=== PATIENT | female | born 1980 | race American Indian/Alaskan Native ===

== ENCOUNTER 2025-06-19 07:46 | Emergency (ER) | payer SELFPAY ==
[2025-06-19] VITALS (11 sets, daily range): BP systolic 110–138; BP diastolic 58–95; PULSE 94–118; RESP 19–25; TEMP 37–37.3; O2SAT 80–96; BMI 34.7
--- NOTE | 2025-06-19 07:54 | PD.EDSOB ---
ED SOB =RME/HPI General Chief Complaint: Shortness of Breath/Dyspnea Stated Complaint: WANTS BREATHING TREATMENT Time Seen by Provider: 06/19/25 07:54 Arrival date/time: 06/19/25 07:46 RME / HPI RME / HPI Narrative: 45 yo female patient with a h/o asthma c/o SOB x 1 day. Patient states she is visiting from [place] and does not have her nebulizer machine here. Denies fever. Denies cough. Related Data Previous Rx's ?Medication ?Instructions ?Recorded doxycycline hyclate 100 mg capsule 100 mg PO BID #20 caps 09/12/22 hydrocodone 5 mg-acetaminophen 325 1 tab PO Q6H PRN pain #15 tabs 09/12/22 mg tablet metronidazole 500 mg tablet 500 mg PO TID #30 tabs 09/12/22 labetalol 100 mg tablet 100 mg PO QDAY #14 tabs 08/15/23 levofloxacin 500 mg tablet 500 mg PO Q24H #4 tabs 06/19/25 Allergies Allergy/AdvReac Type Severity Reaction Status Date / Time honey Allergy Severe Swelling Verified 06/19/25 07:49 of Lip/Tongue/Throat tomato Allergy Severe SWELLING/ Verified 06/19/25 07:49 ITCHING dexamethasone Allergy Intermediate Itching Verified 06/19/25 07:49 Review of Systems Review of Systems Systems Reviewed: All systems reviewed, normal except as documented Past Medical History Past Medical History CARDIAC: Positive Cardiac Disorders and Hypertension RESPIRATORY: Positive Asthma and Pneumonia GASTROINTESTINAL: Positive Obesity REPRODUCTIVE: Positive Pelvic Inflammatory Disease Family History FAMILY HISTORY: Negative Family Cardiac Disorders Social History SMOKING STATUS: Former smoker SECOND HAND EXPOSURE: Yes SUBSTANCE USE: amphetamines Course Course Course Narrative: 0845 Receiving duoneb. Much improved. Patient has received multiple breathing treatments and saturating low 80s. Plan for admission. I spoke with hospitalist team A for admission. Notified by hospitalist team the patient is refusing admission and is going to sign out AMA. Evidently the patient does not have insurance and does not qualify for home oxygen unless she pays $100/day. Quality Measures none Orders Category Date Time Status Bedside COVID-19 Antigen Test NOW Care 06/19/25 11:31 Completed Room Designer NOW Care 06/19/25 08:30 Completed EKG (ED ONLY) *Do not use* NOW Care 06/19/25 08:30 Completed EKG (ED Only) Stat Exams 06/19/25 08:30 Draft XR chest 1V portable Stat Exams 06/19/25 08:30 Completed B-Type Natriuretic Peptide Stat Lab 06/19/25 08:41 Completed CBC Stat Lab 06/19/25 08:41 Completed Comprehensive Metabolic Panel Stat Lab 06/19/25 08:41 Completed Influenza A & B Rapid Panel Stat Lab 06/19/25 12:22 Completed Magnesium Stat Lab 06/19/25 08:41 Completed Troponin I Stat Lab 06/19/25 08:41 Completed ALBUTEROL RT 0.5ml [Proventil Rt 0.5ml] Med 06/19/25 07:54 Discontinued 10 mg INH X1 ONE Albuterol/Ipratr Rt Diann [Duoneb Rt Diann] Med 06/19/25 13:08 Discontinued 3 ml INH X1 ONE Levofloxacin/D5w 500 mg Ivpb [Levaquin Ivpb] Med 06/19/25 11:31 Discontinued 500 mg in 100 ml IV X1 Magnesium Sulfate 2 GM Ivpb [Magnesium Sulfate Ivpb] Med 06/19/25 17:11 Discontinued 2 gm in 50 ml IV X1 MethylPREDNISolone.* [SoluMEDROL Inj] Med 06/19/25 09:47 Discontinued 125 mg IM X1 ONE Sodium Chloride Rt Diann 0.9% [NS Rt Diann 0.9%] Med 06/19/25 07:54 Discontinued 3 ml INH PRN PRN Vital Signs Vital signs: Vital Signs Temperature 99.1 F 06/19/25 08:02 Pulse Rate 94 06/19/25 08:02 Respiratory Rate 25 H 06/19/25 08:02 Blood Pressure 136/95 H 06/19/25 08:02 Pulse Oximetry (%) 91 L 06/19/25 08:02 Oxygen Delivery Method Nasal Cannula 06/19/25 08:02 Oxygen Flow Rate 6 06/19/25 08:02 Shortness of Breath / Dyspnea MDM Narrative MDM Narrative:: Maranda Dale am scribing for and in the presence of Dr. Patrick. Patient data External records reviewed:: [facility] previous records Clinical information provided by:: patient Social determinants that could affect healthcare access:: none Patient has the following chronic illnesses:: See HPI How is presenting disease/condition affected by chronic disease/condition?: exacerbated by Evaluation data The following diagnostics were reviewed and interpreted by me:: lab results, radiology exam(s) and EKG tracing(s) (EKG @ 08:52 AM. Sinus tachycardia, rate 113, left anterior fascicular block, no STEMI. ) Lab and/or radiology exams considered but not ordered:: None Interpretation Summary: Ordering Physician: America Patrick MD Date of Service: 06/19/25 Procedure(s): XR chest 1V portable Accession Number(s): [id number] cc: Hever Cowan MD; NO PRIMARY/FAMILY,PHYSICIAN; America Patrick MD~ EXAMINATION: AP chest single view TECHNIQUE: Portable upright AP chest single view Date and time: June 19, 2025, 0832 hours INDICATIONS: Difficulty breathing today FINDINGS: Bibasilar pneumonia, significant left base Normal heart size IMPRESSION: Bibasilar pneumonia, significant left base Dictated By: Hever Cowan MD Signed By: <Electronically signed by Hever Cowan MD in OV> 06/19/25 0932 Medications / Prescriptions Medications or Prescriptions considered but not ordered:: None Medication administrations:: Medication Administration History Discontinued Medications Albuterol (Albuterol Rt 2.5 Mg/0.5 Ml Nebu) 10 mg INH X1 ONE Stop: 06/19/25 07:55 Last Admin: 06/19/25 08:12 Dose: 10 mg Documented By: [facility] Albuterol/Ipratropium (Albuterol/Ipratropium (Duoneb) Rt Diann 3 Ml Nebu) 3 ml INH X1 ONE Stop: 06/19/25 13:09 Last Admin: 06/19/25 13:42 Dose: 3 ml Documented By: [facility] Levofloxacin/Dextrose (Levaquin Ivpb) 500 mg in 100 mls @ 100 mls/hr IV X1 ONE Stop: 06/19/25 12:30 Last Infusion: 06/19/25 13:21 Dose: Infused Documented By: Admin: 06/19/25 12:07 Dose: 100 mls/hr Documented By: AA Magnesium Sulfate (Magnesium Sulfate Ivpb) 2 gm in 50 mls @ 25 mls/hr IV X1 ONE Stop: 06/19/25 19:10 Last Admin: 06/19/25 18:18 Dose: Not Given Documented By: AA Non-Admin Reason: Patient Refused Methylprednisolone Sodium Succinate (Methylprednisolone Sod Succ 62.5 Mg/Ml 2ml Vial) 125 mg IM X1 ONE Stop: 06/19/25 09:48 Last Admin: 06/19/25 09:57 Dose: 125 mg Documented By: TIARRA Sodium Chloride (Sodium Chloride Rt Diann 0.9% 3 Ml Nebu) 3 ml INH PRN PRN PRN Reason: SOLN Stop: 07/19/25 07:53 See above Consultations Consultation(s) initiated? (list below): Yes Consultation #1 (Physician, Specialty, Details): See above Diagnosis Shortness of Breath Differential Diagnosis: acute exacerbation of chronic obstructive airways disease, congestive heart failure, community acquired pneumonia and asthma with exacerbation Most likely diagnosis given after review of the tests above:: Pneumonia asthma exacerbation Admission Indicated Admission indicated?: indicated Admission Request Was there a request for admission?: Yes Admission Attestation Admission request attestation: Discussed case with [] from Hospitalist service regarding admission. Discussed patients ED course, exam findings, labs, and radiology results. The Hospitalist [agrees,declines] to accept the patient for admission. Disposition Plan Disposition Plan: Admit Discharge Plan Plan Patient Disposition: Left Against Medical Advice Prescriptions/Referrals Prescriptions/Med Rec: New levofloxacin 500 mg tablet 500 mg PO Q24H Qty: 4 0RF No Action labetalol 100 mg tablet 100 mg PO QDAY Qty: 14 0RF metronidazole 500 mg tablet 500 mg PO TID Qty: 30 0RF doxycycline hyclate 100 mg capsule 100 mg PO BID Qty: 20 0RF hydrocodone-acetaminophen 5-325 mg tablet 1 tab PO Q6H MDD 9 PRN (Reason: pain) Qty: 15 0RF Referrals: No Primary/Family,Physician [Primary Care Provider] - In 1 week Problem List Clinical Impression: Acute asthma exacerbation, Pneumonia Patient/Caregiver Discharge Instructions Print Language: Kiswahili
[2025-06-19] MEDS: ALBUTEROL RT 2.5 MG/0.5 ML NEBU 10 MG INH (08:12)
--- NOTE | 2025-06-19 08:30 | XR_ITS ---
EXAMINATION: AP chest single view TECHNIQUE: Portable upright AP chest single view Date and time: June 19, 2025, 0832 hours INDICATIONS: Difficulty breathing today FINDINGS: Bibasilar pneumonia, significant left base Normal heart size IMPRESSION: Bibasilar pneumonia, significant left base
--- NOTE | 2025-06-19 08:30 | EKG_ITS ---
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
[2025-06-19 09:08] LABS: Basophils # (Auto) 0.0 Thou/mm3 (0.0-0.2); Basophils % (Auto) 0 % (0-2.5); Eosinophils # (Auto) 0.3 Thou/mm3 (0.0-0.5); Eosinophils % (Auto) 3 % (0-10); Hematocrit 31.6 % (36.0-46.0); Hemoglobin 9.6 g/dL (12.0-16.0); Immature Granulocytes Auto 0.04 Thou/mm3 (0.00-0.00); Lymphocytes # (Auto) 0.6 Thou/mm3 (1.0-4.8); Lymphocytes % (Auto) 6 % (10-50); Mean Corpuscular HGB Conc 30.4 g/dl (31.0-37.0); Mean Corpuscular Hemoglobin 26.4 pg (25.0-35.0); Mean Corpuscular Volume 87 fL (80-100); Monocytes # (Auto) 0.5 Thou/mm3 (0.0-0.8); Monocytes % (Auto) 5 % (0-12); Neutrophils # (Auto) 8.2 Thou/mm3 (1.8-7.7); Neutrophils % (Auto) 85 % (37-80); Nucleated Red Blood Cell # 0.00 Thou/mm3 (0.00-0.00); Nucleated Red Blood Cell % 0 /100 WBC (0); Platelet Count 132 Thou/mm3 (140-440); RDW Standard Deviation 61.1 fL (36.4-46.3); Red Blood Count 3.63 Miln/mm3 (4.00-5.20); White Blood Count 9.7 Thou/mm3 (3.6-11.0)
[2025-06-19 09:23] LABS: B-Type Natriuretic Peptide 53 pg/mL (0-100)
[2025-06-19 09:26] LABS: Alanine Aminotransferase 21 U/L (10-49); Albumin, Serum 4.0 gm/dL (3.5-5.0); Albumin/Globulin Ratio 1.7 (1.2-2.2); Alkaline Phosphatase 78 U/L (46-116); Anion Gap 11 (7-16); Aspartate Amino Transferase 32 U/L (0-34); BUN/Creatinine Ratio 10 Ratio (12-20); Bilirubin,Total 0.9 mg/dL (0.3-1.2); Blood Urea Nitrogen 6 mg/dL (9-23); Calcium 8.6 mg/dL (8.3-10.6); Calcium (Corrected) 8.6 mg/dL (8.5-10.1); Carbon Dioxide 24.0 mMol/L (20.0-31.0); Chloride 108 mMol/L (98-107); Creatinine (Component) 0.6 mg/dL (0.6-1.3); Estimated Creatinine Clearance 106.8 mL/min (>60); Globulin 2.4 gm/dL (2.3-3.5); Glucose 118 mg/dL (74-106); Magnesium 1.6 mg/dL (1.6-2.6); Osmolality,Calculated 283 (275-295); Potassium 3.4 mMol/L (3.4-5.1); Sodium 143 mMol/L (136-145); Total Protein 6.4 gm/dL (5.7-8.2); Troponin I < 0.020 ng/mL (0.0-0.045); eGFR > 60 See Note
[2025-06-19] MEDS: MethylPREDNISolone SOD SUCC 62.5 MG/ML 2ML VIAL 125 MG IM (09:57)
[2025-06-19] MEDS: LEVOFLOXACIN/D5W 500 MG IVPB 500 MG/100 ML BAG 100 MG IV (12:07)
--- NOTE | 2025-06-19 12:47 | PC.NURSE ---
Patient presents to ED with c/o sob, cough and feeling ill x1 day. Patient is alert and oriented and verbalizes own needs, ambulatory, on room air patient sats at 79%, placed on oxygen via NC at 6l and increased to 96%, patient felt better and decreased oxygen to 2l via NC with sats staying at 96%. Patient call light is within reach.
[2025-06-19 13:24] LABS: Influenza A Ag Negative; Influenza B Ag Negative
[2025-06-19] MEDS: ALBUTEROL/IPRATROPIUM (Duoneb) RT SOL 3 ML NEBU INH (13:42)
--- NOTE | 2025-06-19 15:18 | PC.NURSE ---
Patient was trialed off oxygen to room air, sats at 88% resting. Patient placed on 2l nasal cannula and improved to 92%
--- NOTE | 2025-06-19 15:32 | PC.SS ---
SS follow up SS was contacted by ER Coordinator Marion informed SS if SS could assist with getting patient home 02. SS attempted to get Home 02, however patient does not have insurance. SS contacted Registration and they informed SS that patient had denied [place]. SS contacted patient and informed her that the only way for her to get established with home 02 is if she pays out of pocket $180.00. Patient reported she was unable to provide payment. SS informed Patient that Registration would be meeting with her to get her established with HPE, patient verbalized understanding. SS contacted registration and they informed SS they would meet with patient.
--- NOTE | 2025-06-19 15:59 | PC.SS ---
SS follow up note; SS was contacted by Registration and informed SS that patient does not qualify for HPE due to [place]. SS will update patient's nurse.
--- NOTE | 2025-06-19 16:22 | PC.CC ---
Addendum entered by Marion Ibarra 06/19/25 16:26: ASW explained to pt and provider of the insurance barrier and pt and provider understood. Pt states she has [place] insurance and it should be covered. Pt states she cannot afford the money to pay out of pocket for the O2. Original Note: 1112-[facility] at [phone] and asked for someone who can assist with [place] insurance. ASW was told that Simona is the person to speak to but she is out for the day. ASW was told to call back in the AM for all tirbal insurance verifications.
--- NOTE | 2025-06-19 18:14 | EVENTNT_ITS ---
Documentation for date of: 06/19/25 Event Note Event Note: Patient is a 45-year-old female who came into the ED for chief complaint of shortness of breath. Initial vitals were BP 136/95, pulse 94, RR 25, temp 99.1, SpO2 91% on 6L O2 via nasal cannula. Labs showed Hb 9.6, WBC 9.7, PLT 132, glucose 118, troponin negative. Chest x-ray showed bilateral consolidation at bases. EKG showed sinus tachycardia, rate [address] changes. Upon exam patient had polyphonic wheeze heard throughout bilateral lung jurado and had accessory muscle use. Patient was informed about their current medical condition and the reasons requiring hospitalization and administration of medication. ? The patient was also informed regarding the risks of leaving AGAINST MEDICAL ADVICE, which include deterioration of current condition which could result in worsening symptoms and ultimately could even result in . The patient was able to clearly communicate an understanding of their medical condition back to me. I asked the patient if they are able to explain to me what might happen if they leave the hospital right now and they were able to clearly communicate the risks attributed to their medical condition that could result in further deterioration / bodily harm. The patient was able to explain the reasons that led to their decision for them to leave AGAINST MEDICAL ADVICE in a clear logical manner. I did ask the patient if there is anything that I, or other staff members could do to help improve their experience in the hospital that would allow them to reconsider remaining in the hospital receiving medical care. ?I also asked the patient if there were any family or friends that we could contact to help the patient reconsider their decision to leave the hospital. The patient denied severe depression influencing their decision making capacity. ?The patient denied suicidal ideation. ? The patient denied any extreme extenuating circumstances outside of the hospital that we could help with, this did not change their mind about leaving the hospital. ?The patient reports having access to their home medications and was willing to allow us to prescribe additional medications to their pharmacy. Plan of care discussed with Attending Dr. Clarissa Shell MD PGY 2 Disclaimer: This note was dictated by speech recognition. Minor errors in pharmacy technician assistant may be present due to voice recognition software.
--- NOTE | 2025-06-19 18:19 | PC.NURSE ---
Patient at this time, signed AMA form, patient is unable to stay for admission due to babysitting issues. Patient will draft roller picker child and return to ED fatou. Patient is aware of all consequences and will restart admission process upon return. RN spoke with Dr Shell/Clarissa admission team and made aware.
== END 2025-06-19 18:21 | disposition left against medical advice (07) ==
PROVIDERS: Emergency Provider Emergency Medicine
DX: J18.9 Pneumonia, unspecified organism (principal); J45.901 Unspecified asthma with (acute) exacerbation
CPT/HCPCS: 36415; 71045; 80053; 80307; 80320; 83735; 83880; 84484; 85025; 87502; 87811; 93005; 94640; 94644; 96365; 96372; 99283; A9270; J1956; J2919; J7602; G0480; J7611